=== PATIENT | female | born 1990 | race Caucasian/White ===

== ENCOUNTER 2017-03-16 14:20 | Emergency (ER) | payer OTHER ==
[2017-03-16 15:12] VITALS: BMI 24.2
[2017-03-16] MEDS ORDERED: Lactated Ringer's 1,000 ML IV SCH ×2 (16:45→19:00)
--- NOTE | 2017-03-16 17:12 | OBHP ---
Datetime: 03/16/2017 17:05 IP Adm Impression: Term, intrauterine ; No Active Labor IP Admit Plan: Observation/Evaluation Admit Comment, IP Provider: The patient is a 26-year-old 2 para 1 last menstrual period 06/2016 estimated due date 04/07/2007 19 estimated gestational age 38+ weeks patient presents to labor and delivery complaining of lower abdominal discomfort 1 day's duration patient reports good movement no leakage of fluid paste does report contractions mild intensity. Patient has no records care provided in [place]. Past medical history none Past surgical history none No known drug allergies Social history denies alcohol tobacco use Previous was a primary section Review of systems patient denies headache chest pain shortness of breath palpitations nausea vomit ing diarrhea vaginal bleeding. Cold intolerance easy bruisability musculoskeletal or neurological com plaints Vital signs stable afebrile Physical exam see notes Intrauterine at 38+ weeks Previous section IV fluid hydration, observation Cervical exam long closed posterior External monitor Insufficient care Pelvic Type - PN: Adequate Extremities - PN: Normal Abdomen - PN: Normal Back - PN: Normal Breast - PN: Not Done Lungs - PN: Normal Heart - PN: Normal Thyroid - PN: Normal Neurologic - PN: Normal HEENT - PN: Normal General - PN: Normal Presentation-Admit: Vertex FHR - Baseline A Provider: 145 Gestation - Est Wks by US: 38.0 Pool Provider: Negative Vital Signs Provider: Reviewed IP Chief Complaint: Maternal discomfort NICHD Accel Fetus A IP Provider: [id number] FHR Category Provider Fetus A: Category I NICHD Decel Fetus A IP Provider: None Dilatation, Provider: 0 Effacement, Provider: 0 Station, Provider: 0 Genitourinary Exam: Normal DTRs - PN: Normal
[2017-03-16 17:14] LABS: HEMATOCRIT 32.5 % (34.0-47.0); MEAN CELL VOLUME 89.4 fl (81.0-99.0); MEAN CORPUSCULAR HEMOGLOBIN 29.6 pg (27.0-31.0); MEAN CORPUSCULAR HGB CONC 33.1 g/dL (33.0-37.0); WHITE BLOOD COUNT 15.6 K/uL (4.8-10.8)
[2017-03-16 17:27] LABS: URINE BACTERIA OCC (<OCC); URINE BILIRUBIN NEGATIVE (NEGATIVE); URINE BLOOD NEGATIVE (NEGATIVE); URINE COLOR YELLOW (YELLOW); URINE GLUCOSE (UA) NEG (Normal); URINE KETONE TRACE mg/dL (NEGATIVE); URINE LEUKOCYTE ESTERASE NEG Leu/uL (Negative); URINE PROTEIN NEGATIVE (NEGATIVE); URINE UROBILINOGEN 0.2-1.0 mg/dL (0.2-1.0); WBC URINE 4 /hpf (0-5)
[2017-03-16 17:32] LABS: RBC URINE < 1 /hpf (0-3)
[2017-03-17 01:20] VITALS: BP 101/62; PULSE 82; RESP 20; TEMP 98.3
== END 2017-03-16 20:47 | disposition home or self-care (01) ==
LOC: H.EROB2 14:20
DX: O26.93 Pregnancy related conditions, unspecified, third trimester (principal); R10.2 Pelvic and perineal pain; O47.1 False labor at or after 37 completed weeks of gestation; Z3A.38 38 weeks gestation of pregnancy
CPT/HCPCS: 81003; 85027; 86592; 86850; 86900; 87340; 87390; 96360; 96361; 99283; J7120